=== PATIENT | male | born 1985 | race Caucasian/White ===

== ENCOUNTER 2017-01-05 10:58 | Emergency (ER) | payer OTHER ==
[~2017-01-05] VITALS: Ht 172.7 cm; Wt 86.2 kg
[~2017-01-05 10:58] MED LIST: CEPH500C PO; HYDR-1231 PO; NAPR220T29 PO
--- OUTSIDE RECORDS SUMMARY | 2017-01-05 11:03 | XMS REPORT ---
Author KIRSTY Cruz Organization [employer] Address Unknown Phone Unavailable Care Team Providers Care Photographic Colorist Name Role Phone KIRSTY SHAH CP Unavailable Allergies, Adverse Reactions, Alerts Substance Reaction Event Type Sulfamethoxazole-TMP DS hives Drug Allergy Problems Problem Type Condition Code Onset Dates Condition Status Problem Helicobacter pylori (H. pylori) infection 041.86 Active Assessment Poison jose L23.7 Active Problem Allergy, initial encounter T78.40XA Active Medications Medication Code System Code Instructions Start Date End Date Status Dosage Pred[facility]E [facility] [address]-84 20 mg Orally Once a day Dec 29, 2015Dec 2 tablets Procedures Procedure Coding System Code Date SOLUMEDROL (UP TO 125 MG) CPT-4 J2930 Dec 29, 2015 THER/PROPH/DIAG INJ, SC/IM CPT-4 85118 Dec 29, 2015 Office Visit, Est Pt., Level 3 CPT-4 17475 Dec 29, 2015 Vital Signs Date/Time: Dec 29, 2015 Cardiac Monitoring Heart Rate 72 bpm Weight 193.0 lbs Height 68 in BMI 29.34 Index Blood Pressure Diastolic 85 mmHg Blood Pressure Systolic 140 mmHg Results No Known Results Summary Purpose [employer] Submission
--- OUTSIDE RECORDS SUMMARY | 2017-01-05 11:04 | XMS REPORT ---
Author SHABBIR Cornejo [facility] [employer] Address Unknown Phone Unavailable Care Team Providers Care Rehab Office Coordinator Name Role Phone SHABBIR GREER CP Unavailable Allergies No Known Allergies Problems Problem Type Condition Code Onset Dates Condition Status Problem Helicobacter pylori (H. pylori) infection 041.86 Active Problem Allergy, initial encounter T78.40XA Active Medications No Known Medications Results No Known Results Summary Purpose [employer] Submission
--- OUTSIDE RECORDS SUMMARY | 2017-01-05 11:04 | XMS REPORT ---
Author Author ANIRUDH KENDRICK [facility] Address [address] [address] Care Team Providers Care Servicer Travel Trailers Name Role Phone ANIRUDH KENDRICK Unavailable Problems Problem SNOMED Onset Date Resolved Date Status Mental health problem 352767581 Active Review of medication 100108288 Active Allergies, Adverse Reactions No Known Allergy Care Plan Medications Medication Code Dose,Form,Route,Freq Start Date End Date Sertraline - 50 MG ORAL Tablet 159952 Take one (1) Tablet Each Morning traZODone hydrochloride - 50 MG ORAL Tablet 775449 Take one (1) Tablet At Bedtime, As Necessary traZODone hydrochloride - 50 MG ORAL Tablet 626529 Take one (1) tablet by mouth at bedtime, as needed Sertraline - 50 MG ORAL Tablet 075246 Take one (1) tablet by mouth every morning Sertraline - 25 MG ORAL Tablet 988861 Take one (1) tablet by mouth every morning traZODone hydrochloride - 50 MG ORAL Tablet 443708 Take one (1) tablet by mouth at bedtime, as needed Lab Results NA Encounters Date Time Service Code Provider 02:06:00 pm ANIRUDH KENDRICK 03:01:00 pm Family History Functional Status NA Immunizations NA Vital Signs Date Time BP Pulse Temp Height Weight BMI 11:52:00 am 114 over 70 66 bpm 70.5 in 165 lbs 23.3 kg/m^2 09:29:00 am 114 over 72 66 bpm 70.5 in 178 lbs 25.2 kg/m^2 Social History Date Smoking Status SNOMED Code Unknown If Ever Smoked 591582351 Hospital Discharge Instructions NA Instructions * Not Applicable Procedures Date Procedure Code Type Code Provider Volatile drug screen (procedure) SNOMED CT 271155344 Purpose Electronic Copy
--- NOTE | 2017-01-05 11:30 | ED Neurological Problem ---
General Chief Complaint: Neuro-Stroke Like Symptoms Stated Complaint: R SIDE ARM AND FACIAL NUMBNESS Nursing Triage Note: ARRIVED VIA AMB TO ROOM 07 WITH COMPLAINTS OF RIGHT SIDED NUMBESS IN HAND AND FACE STARTING 1 HOUR AGO THAT IS OFF AND ON. ALSO COMPLAINS OF A HEADACHE. Nursing Sepsis Screen: No Definite Risk Source: patient Exam Limitations: no limitations History of Present Illness Time seen by provider: 11:21 Initial Comments Patient presents to ER by private conveyance with a chief complaint of right facial numbness, slurred speech, arm numbness and tingling and weakness on the right side. Symptoms began about 10:30 and transiently went away within an hour. He had no stumbling, falls, difficulty drinking, facial asymmetry however he still feels a tiny bit of tingling in his fingertips on the right side. No history of trauma. He has never expressed this before. He denies personal or family history of stroke, coronary artery disease or peripheral artery disease. He does not take any medications nor does he have any significant medical history. He's had a suture repair of his left thumb for a traumatic tendon bisection years ago. He has not recently been ill or had any fevers, nausea, vomiting, rash, fatigue. No weight changes. He does not have a history of neck or back pain. Allergies and Home Medications Allergies Coded Allergies: No Known Drug Allergies (Unverified , 10/27/13) Home Medications Cephalexin Monohydrate 500 Mg Capsule, 1 EACH PO TID, #21 Prescribed by: MARCELLE CULP on 10/30/13 1237 Hydrocodone Bit/Acetaminophen 1 Tab Tablet, 1 TAB PO Q6H PRN for PAIN, #10 Prescribed by: MARCELLE CULP on 10/30/13 1237 Naproxen Sodium 220 Mg Tablet, 220 MG PO Q4H PRN for PAIN, (Reported) Constitutional: see HPI, No chills, No diaphoresis, No dizziness, No fever, No malaise, weakness Eyes: Denies Blindness, Denies Blurred Vision, Denies Drainage Ears, Nose, Mouth, Throat: denies ear pain, denies ear discharge Respiratory: No cough, No short of breath Cardiovascular: No chest pain, No Hx of Intervention, No palpitations, No syncope, No vascular heart diseas Gastrointestinal: No abdominal pain, No constipation, No diarrhea, No nausea Genitourinary: No discharge, No dysuria Musculoskeletal: No back pain, No joint pain Skin: No pruritus, No rash Psychiatric/Neurological: See HPI, Denies Cognitive Dysfunction, Denies Headache, Numbness, Tingling (right hand), Weakness, Other (no history of seizures) Past Inxmbue-Lmuhan-Hzwbdy Hx Patient Social History Alcohol Use: Occasionally Uses (last use was this weekend) Recreational Drug Use: No Smoking Status: Current Everyday Smoker Recent Foreign Travel: No Contact w/Someone Who Travel: No Recent Infectious Disease Expo: No Physical Abuse: No Sexual Abuse: No Immunizations Up To Date Tetanus Booster (TDap): Unknown Surgeries History of Surgeries: No Respiratory History of Respiratory Disorde: No Cardiovascular History of Cardiac Disorders: No Neurological History of Neurological Disord: No Reproductive System Hx Reproductive Disorders: No Genitourinary History of Genitourinary Disor: No Gastrointestinal History of Gastrointestinal Di: No Musculoskeletal History of Musculoskeletal Dis: No Endocrine History of Endocrine Disorders: No HEENT History of HEENT Disorders: No Cancer History of Cancer: No Psychosocial History of Psychiatric Problem: No Suicide Risk Score: 0 Integumentary History of Skin or Integumenta: No Physical Exam Vital Signs Vital Sign - Last 12Hours 01/05/17 11:00 Temp 98.0 Pulse 65 Resp 18 B/P (MAP) 148/89 Pulse Ox 98 Capillary Refill : Less Than 3 Seconds General Appearance: WD/WN, no apparent distress HEENT: PERRL/EOMI, normal ENT inspection, TMs normal, pharynx normal Neck: non-tender, full range of motion, supple, normal inspection Respiratory: chest non-tender, lungs clear, normal breath sounds, no respiratory distress Cardiovascular: normal peripheral pulses, regular rate, rhythm, no edema, no murmur Peripheral Pulses: 2+ Radial Pulses (R), 2+ Radial Pulses (L) Gastrointestinal: normal bowel sounds, non tender, soft Back: normal inspection, no vertebral tenderness Extremities: normal range of motion, non-tender, normal inspection, no pedal edema, no calf tenderness, normal capillary refill Neurologic/Psychiatric: 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 Motor strength 4 out of 5 right lower extremity otherwise 5 out of 5 for the other 3 extremities. Reflexes intact 2+ bilateral patellar.) Crainal Nerves: normal hearing, normal speech, PERRL Coordination/Gait: normal finger to nose, normal gait, negative Romberg's sign Motor/Sensory: no sensory deficit, no pronator drift Reflexes: 2+ Knee (R), 2+ Knee (L) Skin: normal color, warm/dry Lymphatic: no adenopathy Stroke NIH Stroke Scale Assessment Select: Initial Level of Consciousness: 0=Alert (0), Level of Consciousness- Questions: 0=Answers both month/age (0), LOC Commands: 0=Performs both tasks (0) , Visual Fox: 0=No visual loss (0), Facial Movement (Facial Paresis): 0= Normal symmetrical mnt (0), Motor Function-Arms Right: 0=No drift (0), Motor Function-Arms Left: 0=No drift (0), Motor Function-Legs Right: 0=No drift (0), Motor Function-Legs Left: 0=No drift (0), Limb Ataxia: 0=Absent (0), Sensory: 0= Normal:no loss (0), Best Language: 0=No aphasia (0), Dysarthria: 0=Normal (0), Extinction & Inattention: 0=No abnormality (0), Total: 0 Progress/Results/Core Measures Results/Orders Lab Results Laboratory Tests Test 01/05/17 11:28 01/05/17 11:56 Range/Units White Blood Count 5.8 4.3-11.0 10^3/uL Red Blood Count 5.36 4.35-5.85 10^6/uL Hemoglobin 15.5 13.3-17.7 G/DL Hematocrit 43 40-54 % Mean Corpuscular Volume 81 80-99 FL Mean Corpuscular Hemoglobin 29 25-34 PG Mean Corpuscular Hemoglobin Concent 36 32-36 G/DL Red Cell Distribution Width 12.9 10.0-14.5 % Platelet Count 209 130-400 10^3/uL Mean Platelet Volume 9.9 7.4-10.4 FL Neutrophils (%) (Auto) 60 42-75 % Lymphocytes (%) (Auto) 29 12-44 % Monocytes (%) (Auto) 7 0-12 % Eosinophils (%) (Auto) 4 0-10 % Basophils (%) (Auto) 0 0-10 % Neutrophils # (Auto) 3.5 1.8-7.8 X 10^3 Lymphocytes # (Auto) 1.7 1.0-4.0 X 10^3 Monocytes # (Auto) 0.4 0.0-1.0 X 10^3 Eosinophils # (Auto) 0.2 0.0-0.3 10^3/uL Basophils # (Auto) 0.0 0.0-0.1 10^3/uL Prothrombin Time 12.9 12.2-14.7 SEC INR Comment 1.0 0.8-1.4 Activated Partial Thromboplast Time 27 24-35 SEC D-Dimer < 0.27 0.00-0.49 UG/ML Sodium Level 138 135-145 MMOL/L Potassium Level 4.0 3.6-5.0 MMOL/L Chloride Level 107 98-107 MMOL/L Carbon Dioxide Level 19 L 21-32 MMOL/L Anion Gap 12 5-14 MMOL/L Blood Urea Nitrogen 17 7-18 MG/DL Creatinine 1.09 0.60-1.30 MG/DL Estimat Glomerular Filtration Rate > 60 BUN/Creatinine Ratio 16 Glucose Level 93 70-105 MG/DL Calcium Level 9.1 8.5-10.1 MG/DL Total Bilirubin 0.8 0.1-1.0 MG/DL Aspartate Amino Transf (AST/SGOT) 19 5-34 U/L Alanine Aminotransferase (ALT/SGPT) 23 0-55 U/L Alkaline Phosphatase 62 40-136 U/L Troponin I < 0.30 <0.30 NG/ML Total Protein 7.4 6.4-8.2 GM/DL Albumin 4.4 3.2-4.5 GM/DL Urine Color YELLOW Urine Clarity CLEAR Urine pH 6 5-9 Urine Specific Pearl 1.020 1.016-1.022 Urine Protein NEGATIVE NEGATIVE Urine Glucose (UA) NEGATIVE NEGATIVE Urine Ketones NEGATIVE NEGATIVE Urine Nitrite NEGATIVE NEGATIVE Urine Bilirubin NEGATIVE NEGATIVE Urine Urobilinogen NORMAL NORMAL MG/DL Urine Leukocyte Esterase NEGATIVE NEGATIVE Urine RBC (Auto) NEGATIVE NEGATIVE Urine RBC NONE /HPF Urine WBC NONE /HPF Urine Squamous Epithelial Cells 0-2 /HPF Urine Crystals NONE /LPF Urine Bacteria NEGATIVE /HPF Urine Casts NONE /LPF Urine Mucus NEGATIVE /LPF Urine Culture Indicated NO My Orders Orders - GEORGIA HANEY Cbc With Automated Diff (01/05/17 11:14) Protime With Inr (01/05/17 11:14) Partial Thromboplastin Time (01/05/17 11:14) Comprehensive Metabolic Panel (01/05/17 11:14) Fibrin Degradation Products (01/05/17 11:14) Troponin I (01/05/17 11:14) Ua Culture If Indicated (01/05/17 11:14) Chest 1 View, Ap/Pa Only (01/05/17 11:14) Ekg Tracing (01/05/17 11:14) Nothing By Mouth (01/05/17 Dinner) Accucheck Stat ONCE (01/05/17 11:14) Saline Lock/Iv-Start (01/05/17 11:14) Saline Lock/Iv-Start (01/05/17 11:14) Vital Signs - Stroke Q15M (01/05/17 11:14) Ct Head Wo-R/O Stroke (01/05/17 11:14) O2 (01/05/17 11:14) Intake & Output 06,14,22 (01/05/17 11:14) Monitor-Rhythm Ecg Trace Only (01/05/17 11:14) Dysphagia Screening Tool (01/05/17 11:14) Post Thrombolytic Adminstratio (01/05/17 11:14) Ns Iv 1000 Ml (Sodium Chloride 0.9%) (01/05/17 12:16) Ct Angio Head/Neck (01/05/17 12:16) Iohexol Injection (Omnipaque 350 Mg/Ml 1 (01/05/17 12:30) Sodium Chloride Flush (Catheter Flush Sy (01/05/17 12:30) Ns (Ivpb) (Sodium Chloride 0.9% Ivpb Bag (01/05/17 12:30) Medications Given in ED Current Medications Medications Dose Ordered Sig/Tessie Route Start Time Stop Time Status Last Admin Dose Admin Iohexol 80 ml ONCE ONCE IV 01/05/17 12:30 01/05/17 12:31 DC 01/05/17 12:47 80 ML Sodium Chloride 100 ml ONCE ONCE IV 01/05/17 12:30 01/05/17 12:31 DC 01/05/17 12:47 80 ML Sodium Chloride 1,000 ml @ 0 mls/hr Q0M ONCE IV 01/05/17 12:16 01/05/17 12:17 DC 01/05/17 12:30 1,000 MLS/HR Vital Signs/I&O Vital Sign - Last 12Hours 01/05/17 11:00 Temp 98.0 Pulse 65 Resp 18 B/P (MAP) 148/89 Pulse Ox 98 Blood Pressure Mean: 108 Progress Note : Time: 11:29 Progress Note All the patient does not have much significant family history he does have a history of smoking. It's unlikely this could be a stroke however he had strokelike symptoms with persistent neurologic findings at the time of examination, motor strength 4-5 right lower extremity. We'll go ahead and work him up because missing a stroke in a 31-year-old would be unwise. Unlikely a metabolic exhalation for his symptoms given they're unilateral nature. Extensive probing of his back and cervical spine did not indicate any pain or DJD exhalation for his numbness and tingling and weakness. ECG Initial ECG Impression Date: Jan 05, 2017 Initial ECG Impression Time: 11:28 Initial ECG Rate: 64 Initial ECG Rhythm: Normal Sinus Initial ECG Intervals: Normal Initial ECG Impression: Normal Initial ECG Comparisson: No Previous ECG Available Comment No ST wave elevation or depression Diagnostic Imaging Diagonstic Imaging: CT Plain Films/CT/US/NM/MRI: head Comments NAME: BRITTANY MORRIS MED REC#: [id number] PHYSICIAN: GEORGIA HANEY MD CC: MISA BECKWITH DO; GEORGIA HANEY Page 1 of 1 RADIOLOGY REPORT VIA [facility] [place], [place] CC: MISA BECKWITH DO; GEORGIA HANEY Page 1 of 1 RADIOLOGY REPORT NAME: BRITTANY MORRIS MED REC#: [id number] PT STATUS: REG ER : 1985 PHYSICIAN: GEORGIA HANEY MD ADMIT DATE: 01/05/17/ER Signed Date of Exam: 01/05/17 CT HEAD WO-R/O STROKE INDICATION: Possible stroke. Right-sided numbness. COMPARISON: None PROCEDURE: Unenhanced helical CT imaging of the brain is performed. No acute intracranial hemorrhage, mass effect or edema is seen. The posada-white junction is preserved. The ventricles appear normal. No focal abnormality is demonstrated. The paranasal sinuses and mastoids are clear as visualized. IMPRESSION: No acute intracranial abnormality is demonstrated. Dictated by: Dictated on workstation # [id number] Dict: 01/05/17 1140 Trans: 01/05/17 1154 Interpreted by: MISA BECKWITH DO Electronically signed by: MISA BECKWITH DO 01/05/17 1154 Reviewed: Reviewed by Me Diagonstic Imaging: Xray Plain Films/CT/US/NM/MRI: chest Comments NAME: BRITTANY MORRIS MED REC#: [id number] PHYSICIAN: GEORGIA HANEY MD CC: MISA BECKWITH DO; GEORGIA HANEY Page 1 of 1 RADIOLOGY REPORT VIA [place], [place] CC: MISA BECKWITH DO; GEORGIA HANEY Page 1 of 1 RADIOLOGY REPORT NAME: BRITTANY MORRIS MED REC#: [id number] PT STATUS: REG ER : 1985 PHYSICIAN: GEORGIA HANEY MD ADMIT DATE: 01/05/17/ER Signed Date of Exam: 01/05/17 CHEST 1 VIEW, AP/PA ONLY INDICATION: Right-sided numbness. COMPARISON: None. FINDINGS: Single frontal view of the chest is obtained. Heart size is normal. The pulmonary vessels appear unremarkable. There is no pneumothorax, mediastinal widening, or pleural fluid demonstrated. The lungs are clear. IMPRESSION: Negative chest. Dictated by: Dictated on workstation # [id number] Dict: 01/05/17 1141 Trans: 01/05/17 1155 Interpreted by: MISA BECKWITH DO Electronically signed by: MISA BECKWITH DO 01/05/17 1155 Reviewed: Reviewed by Me Diagonstic Imaging: CT (angio) Plain Films/CT/US/NM/MRI: head ( and neck) Comments NAME: BRITTANY MORRIS Faustino MED REC#: [id number] PT STATUS: REG ER : 1985 PHYSICIAN: GEORGIA HANEY MD ADMIT DATE: 01/05/17/ER Draft Date of Exam:01/05/17 CT ANGIO HEAD/NECK CLINICAL INDICATION: Patient with stroke like symptoms. EXAMINATIONS: 1: Head CT with IV contrast. 2: CT angiogram of the head and neck performed with 100 cc of Omnipaque 350 IV contrast. Sagittal and coronal MIP reformations were created for better visualization of vascular anatomy. COMPARISON: Head CT without contrast dated 01/05/2017. FINDINGS: Head CT: There is no evidence of acute cerebral infarct, intracranial hemorrhage, or gross mass effect. There is no abnormal IV contrast enhancement. There is normal posada-white matter distinction. The brain parenchymal volume appears appropriate for patient's age. There is no significant midline shift or herniation. There is no evidence of hydrocephalus. The basal cisterns are unremarkable. The skull, extracranial soft tissue, and orbits are unremarkable. There is mild mucosal thickening involving the ethmoid sinus and both maxillary sinuses. Temporal bone structures show no significant abnormality. CT angiogram: There is a common origin of the left common carotid artery and right brachiocephalic artery consistent with bovine arch. Two-vessel aortic arch is seen. The brachiocephalic artery, bilateral subclavian arteries, bilateral common carotid arteries, bilateral cervical ICA, bilateral ECA, and bilateral cervical vertebral arteries are patent without significant stenosis, vascular malformation, aneurysm, or dissection. There is a dominant right vertebral artery seen. Bilateral PICAs are patent. The intradural vertebral arteries, basilar artery and bilateral ICAs are patent. right CUSTOMER PROJECT MANAGER is seen. Absent right P1 CUSTOMER PROJECT MANAGER is noted. The left P1 CUSTOMER PROJECT MANAGER and its branches are patent. The anterior circulation of the [place] is patent. The ACAs and MCAs are patent. The bilateral intracranial ICAs and cavernous carotid arteries are patent. The dural venous sinuses are unremarkable as visualized. The neck soft tissue structures are unremarkable. Visualized lung apices are clear. Cervical spine is unremarkable. IMPRESSION: 1: Mild paranasal sinus disease. Otherwise unremarkable CT scan of the brain with no evidence of acute intracranial process. 2: Unremarkable CT angiogram of the [place] and neck with no evidence of significant stenosis, vascular malformation, aneurysm, or dissection. 3: Bovine aortic arch and right CUSTOMER PROJECT MANAGER. Dictated on workstation # [id number] Dict: 01/05/17 1318 Trans: 01/05/17 1330 [facility] [phone] Interpreted by: JOEL GRANDA MD Electronically signed by: Reviewed: Reviewed by Me Consults Consults : Consults Notes [facility] Neuro Dr. Wong: She recommends going ahead and getting a CTA here in if it' s negative then get the MRI in the next 1-2 days outpatient. The patient should also follow-up with his PCP for further management and workup. Departure Impression Impression: Primary Impression: Right sided weakness Additional Impressions: Numbness on right side Numbness and tingling of right side of face Disposition: HOME, SELF-CARE Condition: Improved Departure-Patient Inst. Decision time for Depature: 13:49 Referrals: NO,LOCAL PHYSICIAN (PCP/Family) Primary Care Physician Patient Instructions: Transient Ischemic Attack (DC) Add. Discharge Instructions: Plan on getting the MRI done in the next 1-2 days and then establishing and following up with a primary care physician for continued management and interpretation of your MRI results. All discharge instructions reviewed with patient and/or family. Voiced understanding. Work/School Note: Work Release Form Date Seen in the Emergency Department: Jan 05, 2017 Return to Work: Jan 06, 2017 Restrictions: No Restrictions Copy Copies To 1: SHABBIR GREER TITUS J Jan 05, 2017 11:30
[2017-01-05 11:35] LABS: BASOPHILS % (AUTO) 0 % (0-10); EOSINOPHILS # (AUTO) 0.2 10^3/uL (0.0-0.3); EOSINOPHILS % (AUTO) 4 % (0-10); LYMPHOCYTES # (AUTO) 1.7 X 10^3 (1.0-4.0); LYMPHOCYTES % (AUTO) 29 % (12-44); MEAN CORPUSCULAR HEMOGLOBIN 29 PG (25-34); MEAN CORPUSCULAR HGB CONC 36 G/DL (32-36); MEAN CORPUSCULAR VOLUME 81 FL (80-99); MEAN PLATELET VOLUME 9.9 FL (7.4-10.4); MONOCYTES # (AUTO) 0.4 X 10^3 (0.0-1.0); MONOCYTES % (AUTO) 7 % (0-12); NEUTROPHILS # (AUTO) 3.5 X 10^3 (1.8-7.8); NEUTROPHILS % (AUTO) 60 % (42-75); PLATELET COUNT 209 10^3/uL (130-400); RED BLOOD COUNT 5.36 10^6/uL (4.35-5.85); RED CELL DISTRIBUTION WIDTH 12.9 % (10.0-14.5); WHITE BLOOD COUNT 5.8 10^3/uL (4.3-11.0)
--- NOTE | 2017-01-05 11:44 | Diagnostic Imaging Report ---
INDICATION: Right-sided numbness. COMPARISON: None. FINDINGS: Single frontal view of the chest is obtained. Heart size is normal. The pulmonary vessels appear unremarkable. There is no pneumothorax, mediastinal widening, or pleural fluid demonstrated. The lungs are clear. IMPRESSION: Negative chest. Dictated by: Dictated on workstation # [id number]
--- NOTE | 2017-01-05 11:48 | Diagnostic Imaging Report ---
INDICATION: Possible stroke. Right-sided numbness. COMPARISON: None PROCEDURE: Unenhanced helical CT imaging of the brain is performed. No acute intracranial hemorrhage, mass effect or edema is seen. The posada-white junction is preserved. The ventricles appear normal. No focal abnormality is demonstrated. The paranasal sinuses and mastoids are clear as visualized. IMPRESSION: No acute intracranial abnormality is demonstrated. Dictated by: Dictated on workstation # [id number]
[2017-01-05 11:54] LABS: ALANINE AMINOTRANSFERASE 23 U/L (0-55); ALBUMIN 4.4 GM/DL (3.2-4.5); ANION GAP 12 MMOL/L (5-14); ASPARTATE AMINO TRANSFERASE 19 U/L (5-34); BILIRUBIN,TOTAL 0.8 MG/DL (0.1-1.0); BLOOD UREA NITROGEN 17 MG/DL (7-18); BUN/CREATININE RATIO 16; CALCIUM 9.1 MG/DL (8.5-10.1); CARBON DIOXIDE 19 MMOL/L (21-32); CHLORIDE 107 MMOL/L (98-107); CREATININE SERUM 1.09 MG/DL (0.60-1.30); GFR ESTIMATED > 60; GLUCOSE 93 MG/DL (70-105); SODIUM 138 MMOL/L (135-145); TOTAL PROTEIN 7.4 GM/DL (6.4-8.2)
[2017-01-05 12:02] LABS: TROPONIN I < 0.30 NG/ML (<0.30)
[2017-01-05 12:03] LABS: PARTIAL THROMBOPLASTIN TIME 27 SEC (24-35); PROTHROMBIN TIME PATIENT 12.9 SEC (12.2-14.7)
[2017-01-05 12:04] LABS: BILIRUBIN,URINE NEGATIVE (NEGATIVE); KETONES,URINE NEGATIVE (NEGATIVE); LEUKOCYTE ESTERASE ,URINE NEGATIVE (NEGATIVE); NITRITE,URINE NEGATIVE (NEGATIVE); PH,URINE 6 (5-9); PROTEIN,URINE NEGATIVE (NEGATIVE); UROBILINOGEN,URINE NORMAL (NORMAL)
[2017-01-05 12:11] LABS: SQUAMOUS EPITHELIAL CELL,UR 0-2 /HPF
[2017-01-05] MEDS ORDERED: NS IV 1000 ML 1,000 ML IV ONE (12:16)
[2017-01-05] MEDS ORDERED: NS 100 ML (IVPB) BAG IV ONE (12:30)
[2017-01-05] MEDS ORDERED: IOHEXOL 350 MG/ML 100 ML (OMNIPAQUE 350) VIAL IV ONE (12:30)
[2017-01-05] MEDS ORDERED: CATHETER FLUSH 10 ML SYR IV PRN (12:30)
--- NOTE | 2017-01-05 13:31 | Diagnostic Imaging Report ---
CLINICAL INDICATION: Patient with stroke like symptoms. EXAMINATIONS: 1: Head CT with IV contrast. 2: CT angiogram of the head and neck performed with 100 cc of Omnipaque 350 IV contrast. Sagittal and coronal MIP reformations were created for better visualization of vascular anatomy. COMPARISON: Head CT without contrast dated 01/05/2017. FINDINGS: Head CT: There is no evidence of acute cerebral infarct, intracranial hemorrhage, or gross mass effect. There is no abnormal IV contrast enhancement. There is normal posada-white matter distinction. The brain parenchymal volume appears appropriate for patient's age. There is no significant midline shift or herniation. There is no evidence of hydrocephalus. The basal cisterns are unremarkable. The skull, extracranial soft tissue, and orbits are unremarkable. There is mild mucosal thickening involving the ethmoid sinus and both maxillary sinuses. Temporal bone structures show no significant abnormality. CT angiogram: There is a common origin of the left common carotid artery and right brachiocephalic artery consistent with bovine arch. Two-vessel aortic arch is seen. The brachiocephalic artery, bilateral subclavian arteries, bilateral common carotid arteries, bilateral cervical ICA, bilateral ECA, and bilateral cervical vertebral arteries are patent without significant stenosis, vascular malformation, aneurysm, or dissection. There is a dominant right vertebral artery seen. Bilateral PICAs are patent. The intradural vertebral arteries, basilar artery and bilateral ICAs are patent. right LABORER STEEL HANDLING is seen. Absent right P1 LABORER STEEL HANDLING is noted. The left P1 LABORER STEEL HANDLING and its branches are patent. The anterior circulation of the [place] is patent. The ACAs and MCAs are patent. The bilateral intracranial ICAs and cavernous carotid arteries are patent. The dural venous sinuses are unremarkable as visualized. The neck soft tissue structures are unremarkable. Visualized lung apices are clear. Cervical spine is unremarkable. IMPRESSION: 1: Mild paranasal sinus disease. Otherwise unremarkable CT scan of the brain with no evidence of acute intracranial process. 2: Unremarkable CT angiogram of the [place] and neck with no evidence of significant stenosis, vascular malformation, aneurysm, or dissection. 3: Bovine aortic arch and right LABORER STEEL HANDLING. Dictated by: Dictated on workstation # [id number]
[2017-01-05 14:00] VITALS: BP 127/90
== END 2017-01-05 14:00 | disposition home or self-care (01) ==
LOC: EDUNIT# 10:58 → ER 11:00
DX: M62.89 Other specified disorders of muscle (principal); R20.0 Anesthesia of skin; R20.2 Paresthesia of skin
CPT/HCPCS: 36415; 70450; 70496; 70498; 71010; 80053; 81000; 82962; 84484; 85025; 85379; 85610; 85730; 93005; 96360

== ENCOUNTER → 2017-01-14 | Outpatient (CLI) | payer OTHER ==
[~2017-01-14] MED LIST changes: +GADOBUTROL 10 MMOL/10 ML (GADAVIST) VIAL IV ONE
--- NOTE | 2017-01-14 12:54 | Diagnostic Imaging Report ---
PROCEDURE: MR imaging of the brain with and without contrast. TECHNIQUE: Multiplanar, multisequence MR imaging of the brain was performed with and without contrast. Right hand and right facial numbness. 9 mL of Gadavist was administered intravenously. FINDINGS: There is no diffusion restriction to suggest an acute infarct or other diffusion abnormality. There is a nonspecific 1.2 cm elongated focus of increased signal on T2 and low signal on T1-weighted images seen in the white matter deep to the left insular cortex along the area of the claustrum and extreme capsule. No other focus of signal abnormality, demyelination or mass is seen in the white or posada matter. No enhancing lesion. The brainstem and the cerebellum appear unremarkable. The central vascular flow-voids appear grossly unremarkable. The internal auditory canals and inner ear structures appear symmetric. The pituitary gland is normal in size. No hypothalamic or pineal region mass is seen. The paranasal sinuses, and orbits visualized portions appear unremarkable. IMPRESSION: There is a single focus of increased signal seen deep to the left insular cortex with no obvious mass effect or enhancement. Etiology and chronicity are indeterminate. This could be related to a focus of gliosis from a prior insult or sequela of focal encephalitis or demyelinating process. The lack of enhancement or diffusion restriction may favor chronicity. Correlate clinically and with followup exam, if needed. Dictated by: Dictated on workstation # [id number]
== END ==
LOC: RAD 10:55
PROVIDERS: ATTEND Nurse Practitioner Family
DX: G45.9 Transient cerebral ischemic attack, unspecified (principal)
CPT/HCPCS: 70553

== ENCOUNTER → 2017-07-21 | Outpatient (CLI) | payer OTHER ==
[~2017-07-21] MED LIST changes: +BARIUM SUSPENSION 105% (LIQUID POLIBAR PLUS) 240 ML/DOSE PO ONE; +BARIUM SUSPENSION 60% (LIQUID EZ PAQUE) 240 ML DOSE PO ONE; -GADOBUTROL 10 MMOL/10 ML (GADAVIST) VIAL IV ONE
--- NOTE | 2017-07-21 11:48 | Diagnostic Imaging Report ---
INDICATION: Mid chest pain while drinking liquids and eating solids for the past three weeks. TECHNIQUE: The patient ingested effervescent crystals as well as thin and thick barium and imaging of the esophagus was performed. FINDINGS: The preliminary radiograph of the chest is unremarkable. The esophagus has a smooth contour. No mass or strictures identified. No gastroesophageal reflux or hiatal hernia was demonstrated. IMPRESSION: Unremarkable esophagram. Dictated by: Dictated on workstation # [id number]
== END ==
LOC: RAD 09:20
PROVIDERS: ATTEND Nurse Practitioner Family
DX: F45.8 Other somatoform disorders (principal)
CPT/HCPCS: 74220

== ENCOUNTER 2021-02-01 11:15 | Emergency (ER) | payer SELFPAY ==
[~2021-02-01] VITALS: Ht 172.7 cm; Wt 68.0 kg
[~2021-02-01 11:15] MED LIST changes: -BARIUM SUSPENSION 105% (LIQUID POLIBAR PLUS) 240 ML/DOSE PO ONE; -BARIUM SUSPENSION 60% (LIQUID EZ PAQUE) 240 ML DOSE PO ONE
--- OUTSIDE RECORDS SUMMARY | 2021-02-01 11:21 | XMS REPORT | Clinical Summary ---
Demographics Preferred Language Unknown Marital Status Single Evangelical Affiliation Unknown Race Unknown Ethnic Group Unknown Author Author [facility] Organization [facility] Address Unknown Phone Unavailable Care Team Providers Care Design Studio Consultant Name Role Phone PCP Unavailable Allergies Not on File Medications Not on file Active Problems Not on file Social History Date Tobacco Use Types Packs/Day Years Used Never Assessed Sex Assigned at Date Recorded Not on file Last Filed Vital Signs Not on file Plan of Treatment Not on file Results Not on filefrom Last 3 Months
--- OUTSIDE RECORDS SUMMARY | 2021-02-01 11:21 | XMS REPORT | Clinical Summary ---
Author Author [facility] Organization [facility] Address Unknown Phone Unavailable Care Team Providers Care Ent Consultant Name Role Phone Deon Ricardo MD PCP Deon Ricardo MD 100 Source Comments Some departments are not documenting in the electronic medical record. If you d o not see the information that you expected, contact Release of Information in [facility] Information Management department at [phone] for further assistan ce in locating additional records.[facility] Allergies No Known Active Allergies Medications End Date Status Medication Sig Dispensed Refills Start Date Active loratadine/pseudoephedrin Take 1 tablet 0 e (CLARITIN-D 12 HOUR) by mouth 5/120 mg tablet twice daily. Active IBUPROFEN PO Take 200 mg 0 by mouth as Needed. Active ARIPiprazole (ABILIFY) 5 Take 5 mg by 0 mg tablet mouth daily. Active Problems Problem Noted Date Pancreatic lesion 06/14/2017 Overview: Formatting of this note might be differ ent from the original. 06/2017: seen incidentally on CT, will n eed repeat CT scan in 6 months Immunizations Name Administration Dates Next Due Td Vaccine 09/07/2006, 09/05/2002 Tdap Vaccine 08/11/2017 Surgical History Surgery Date Site/Laterality Comments HX APPENDECTOMY HX BROKEN BONES/ Right plate placed in low er leg FRACTURES Medical History Medical History Date Comments Vision decreased Depression Family History Medical History Relation Name Comments Cancer Father non hodgkins lympho ma Cancer-Breast Maternal Aunt Cancer-Ovarian Maternal Aunt Depression Mother Thyroid Disease Mother Dementia Paternal Grandfather Relation Name Status Comments Father Alive Maternal Aunt Mother Alive Paternal Grandfather Alive Sister Alive Sister Alive Social History Date Tobacco Use Types Packs/Day Years Used Former Smoker 0.25 Smokeless Tobacco: Never Used Comments: Vape Comments Alcohol Use Standard Drinks/Week No 0 (1 standard drink = 0.6 o z pure alcohol) Sex Assigned at Date Recorded Not on file Last Filed Vital Signs Reading Time Taken Comments Vital Sign 99/66 08/11/2017 1:24 PM CDT Blood Pressure 60 08/11/2017 1:24 PM CDT Pulse 36.8 C (98.2 F) 08/11/2017 1:24 PM CDT Temperature 16 08/11/2017 1:24 PM CDT Respiratory Rate - - Oxygen Saturation - - Inhaled Oxygen Concentration 72.6 kg (160 lb) 01/09/2020 8:19 AM CDT Weight 177.8 cm (5' 10") 01/09/2020 8:19 AM CDT Height 22.96 01/09/2020 8:19 AM CDT Body Mass Index Plan of Treatment Health Maintenance Due Date Last Done Comments HEPATITIS C SCREENING 07/21/2005 PHYSICAL (COMPREHENSIVE) 08/11/2018 08/11/2017 EXAM INFLUENZA VACCINE 11/30/2020 DTAP/TDAP VACCINES (3 - 08/12/2027 08/11/2017, Td or Tdap) 09/07/2006, 09/05/2002 HIV SCREENING Completed 08/11/2017 Results Not on filefrom Last 3 Months Insurance Type Payer Benefit Subscriber ID Effective Phone Address Plan / Dates Group OUMARLELEArie OSEGUERANILSON [id number]-P NEERU us 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
--- NOTE | 2021-02-01 11:37 | ED Integumentary General ---
General Chief Complaint: Skin/Wound Problems Stated Complaint: SORES ON BOTH FEET/R HAND/R ELBOW Nursing Triage Note: 3 days caridad noticed sores on right hand right elbow and right toe now on left hand. developed fever that evening est. at 101. tylenol and ibuprofen for 3 days not getting any better. never had anything like this happen before. Source: patient Exam Limitations: no limitations History of Present Illness Date Seen by Provider: Feb 01, 2021 Time Seen by Provider: 11:35 Initial Comments To ER with a 3-day history of 2 sores on the right hand over the third and fourth knuckle. 1 to the posterior right elbow. Today he developed some between his toes on both feet. He had a fever up to 101 which just started today. No cough. No intraoral lesions. No other symptoms such as rhinorrhea but he does have some general fatigue and malaise. Timing/Duration: constant Severity: moderate Location: none Possible Cause: no cause identified Associated Symptoms: fever Allergies and Home Medications Allergies Coded Allergies: No Known Drug Allergies (Unverified , 10/27/13) Patient Home Medication List Home Medication List Reviewed: Yes Cephalexin Monohydrate (Cephalexin) 500 Mg Capsule, 1 EACH PO TID Prescribed by: MARCELLE CULP on 10/30/13 1237 Doxycycline Hyclate (Doxycycline Hyclate) 100 Mg Tablet, 100 MG PO BID Prescribed by: MARCELLE CULP on 02/01/21 1218 Hydrocodone Bit/Acetaminophen (Hydrocodone-Apap 5-325 Tablet) 1 Tab Tablet, 1 TAB PO Q6H PRN for PAIN Prescribed by: MARCELLE CULP on 10/30/13 1237 Naproxen Sodium (Naproxen) 220 Mg Tablet, 220 MG PO Q4H PRN for PAIN, (Reported) Entered as Reported by: KARL GARCIA on 10/30/13 1235 Review of Systems Review of Systems Constitutional: see HPI, fever, malaise EENTM: see HPI Respiratory: no symptoms reported Cardiovascular: no symptoms reported Genitourinary: no symptoms reported Musculoskeletal: no symptoms reported Skin: see HPI Psychiatric/Neurological: No Symptoms Reported Endocrine: No Symptoms Reported Past Ycfjzxz-Nbjsvz-Uxkyfz Hx Immunizations Up To Date Tetanus Booster (TDap): Unknown Past Medical History Surgeries: No Respiratory: No Cardiac: No Neurological: No Reproductive Disorders: No Genitourinary: No Gastrointestinal: No Musculoskeletal: No Endocrine: No HEENT: No Cancer: No Psychosocial: No Integumentary: No Physical Exam Vital Signs Vital Signs - First Documented 02/01/21 11:24 Temp 36.6 Pulse 92 Resp 18 B/P (MAP) 108/66 (80) Pulse Ox 100 Capillary Refill : Less Than 3 Seconds General Appearance: WD/WN, no apparent distress HEENT: PERRL/EOMI, normal ENT inspection Neck: non-tender, full range of motion Respiratory: no respiratory distress, no accessory muscle use Neurologic/Psychiatric: alert, normal mood/affect, oriented x 3 Skin: normal color, warm/dry Skin Problem Location: other (There are unruptured pustules on an erythematous base without secondary cellulitis to the interdigital skin between the toes on both feet. Nothing on the dorsal or plantar surface of the toes. Nothing on the palms of the hands but he does have some ruptured pustules over the third and fourth knuckles as well as a pustule to the right elbow. Nothing on the torso forearms or upper arms. Nothing on the face and no intraoral lesions.) Skin Problem Character: other (pustules) Progress/Results/Core Measures Results/Orders Lab Results Laboratory Tests Test 02/01/21 11:40 Range/Units White Blood Count 7.9 4.3-11.0 10^3/uL Red Blood Count 4.94 4.30-5.52 10^6/uL Hemoglobin 14.0 13.3-17.7 g/dL Hematocrit 42 40-54 % Mean Corpuscular Volume 85 80-99 fL Mean Corpuscular Hemoglobin 28 25-34 pg Mean Corpuscular Hemoglobin Concent 33 32-36 g/dL Red Cell Distribution Width 13.0 10.0-14.5 % Platelet Count 157 130-400 10^3/uL Mean Platelet Volume 10.1 9.0-12.2 fL Immature Granulocyte % (Auto) 0 % Neutrophils (%) (Auto) 78 H 42-75 % Lymphocytes (%) (Auto) 14 12-44 % Monocytes (%) (Auto) 5 0-12 % Eosinophils (%) (Auto) 2 0-10 % Basophils (%) (Auto) 0 0-10 % Neutrophils # (Auto) 6.2 1.8-7.8 10^3/uL Lymphocytes # (Auto) 1.1 1.0-4.0 10^3/uL Monocytes # (Auto) 0.4 0.0-1.0 10^3/uL Eosinophils # (Auto) 0.2 0.0-0.3 10^3/uL Basophils # (Auto) 0.0 0.0-0.1 10^3/uL Immature Granulocyte # (Auto) 0.0 0.0-0.1 10^3/uL Sodium Level 141 135-145 MMOL/L Potassium Level 3.9 3.6-5.0 MMOL/L Chloride Level 105 98-107 MMOL/L Carbon Dioxide Level 24 21-32 MMOL/L Anion Gap 12 5-14 MMOL/L Blood Urea Nitrogen 9 7-18 MG/DL Creatinine 0.93 0.60-1.30 MG/DL Estimat Glomerular Filtration Rate 94 BUN/Creatinine Ratio 10 Glucose Level 87 70-105 MG/DL Calcium Level 9.3 8.5-10.1 MG/DL Corrected Calcium 9.5 8.5-10.1 MG/DL Total Bilirubin 0.5 0.1-1.0 MG/DL Aspartate Amino Transf (AST/SGOT) 24 5-34 U/L Alanine Aminotransferase (ALT/SGPT) 32 0-55 U/L Alkaline Phosphatase 68 40-136 U/L C-Reactive Protein High Sensitivity 7.07 H 0.00-0.50 MG/DL Total Protein 6.3 L 6.4-8.2 GM/DL Albumin 3.8 3.2-4.5 GM/DL My Orders Orders - MARCELLE CULP APRN Hs C Reactive Protein (02/01/21 11:33) Cbc With Automated Diff (02/01/21 11:33) Comprehensive Metabolic Panel (02/01/21 11:33) Wound Culture (02/01/21 11:33) Doxycycline Hyclate Tablet (Vibramycin T (02/01/21 11:45) Hydrocodone/Apap 5/325 Tablet (Lortab 5 (02/01/21 11:45) Medications Given in ED Current Medications Medications Dose Ordered Sig/Tessie Route Start Time Stop Time Status Last Admin Dose Admin Acetaminophen/ Hydrocodone Bitart 1 ea ONCE ONCE PO 02/01/21 11:45 02/01/21 11:46 DC 02/01/21 12:05 1 EA Vital Signs/I&O 02/01/21 11:24 Temp 36.6 Pulse 92 Resp 18 B/P (MAP) 108/66 (80) Pulse Ox 100 Blood Pressure Mean: 80 Departure Impression Primary Impression: Cellulitis of right elbow Additional Impression: Viral exanthem, unspecified Disposition: HOME, SELF-CARE Condition: Stable Departure-Patient Inst. Decision time for Depature: 12:16 Referrals: SHABBIR GREER DO (PCP) Primary Care Physician LISSA HERRERA APRN (Family) Primary Care Physician Patient Instructions: Viral Exanthem, Cellulitis (Skin Infection), Adult ED Add. Discharge Instructions: 1. The cause of your fatigue and skin lesions is not entirely clear though it may be related to a hand-foot and mouth disease which is more common to children but can be seen in adults to with body aches fever and a skin rash to the hands and feet. I would not be surprised if you develop sore throat in the next few days. Most of the time symptoms completely resolved within 7 to 10 days. I do think that you have a bacterial infection to the right elbow because there is puslike drainage with surrounding redness. For that reason I am going to give you an antibiotic called doxycycline to be taken twice a day. Use Tylenol and ibuprofen for pain or fever control. Drink plenty of fluids and rest. Follow- up with your doctor next week for recheck. All discharge instructions reviewed with patient and/or family. Voiced understanding. Scripts Doxycycline Hyclate (Doxycycline Hyclate) 100 Mg Tablet 100 MG PO BID, #14 TAB 0 Refills Prov: MARCELLE CULP APRN 02/01/21 Work/School Note: Work Release Form Date Seen in the Emergency Department: Feb 01, 2021 Return to Work: Feb 04, 2021 MARCELLE CULP APRN Feb 01, 2021 11:37
[2021-02-01] MEDS ORDERED: DOXYCYCLINE 100 MG (VIBRAMYCIN) TABLET PO SCH (11:45)
[2021-02-01] MEDS ORDERED: HYDROcodone/APAP 5 MG/325 MG (LORTAB) TAB PO ONE (11:45)
[2021-02-01 11:50] LABS: BASOPHILS % (AUTO) 0 % (0-10); EOSINOPHILS # (AUTO) 0.2 10^3/uL (0.0-0.3); EOSINOPHILS % (AUTO) 2 % (0-10); HEMATOCRIT 42 % (40-54); LYMPHOCYTES # (AUTO) 1.1 10^3/uL (1.0-4.0); LYMPHOCYTES % (AUTO) 14 % (12-44); MEAN CORPUSCULAR HEMOGLOBIN 28 pg (25-34); MEAN CORPUSCULAR HGB CONC 33 g/dL (32-36); MEAN CORPUSCULAR VOLUME 85 fL (80-99); MEAN PLATELET VOLUME 10.1 fL (9.0-12.2); MONOCYTES # (AUTO) 0.4 10^3/uL (0.0-1.0); MONOCYTES % (AUTO) 5 % (0-12); NEUTROPHILS # (AUTO) 6.2 10^3/uL (1.8-7.8); NEUTROPHILS % (AUTO) 78 % (42-75); PLATELET COUNT 157 10^3/uL (130-400); WHITE BLOOD COUNT 7.9 10^3/uL (4.3-11.0)
[2021-02-01 12:01] LABS: ALBUMIN 3.8 GM/DL (3.2-4.5); POTASSIUM 3.9 MMOL/L (3.6-5.0)
[2021-02-01 12:02] LABS: CALCIUM 9.3 MG/DL (8.5-10.1)
[2021-02-01 12:04] LABS: TOTAL PROTEIN 6.3 GM/DL (6.4-8.2)
[2021-02-01 12:05] LABS: BILIRUBIN,TOTAL 0.5 MG/DL (0.1-1.0)
[2021-02-01 12:07] LABS: CREATININE SERUM 0.93 MG/DL (0.60-1.30)
[2021-02-01] MEDS ORDERED: DOXY100T2 PO (12:18)
[2021-02-01 12:43] VITALS: BP 108/66
== END 2021-02-01 12:40 | disposition home or self-care (01) ==
LOC: EDUNIT# 11:15 → ER 11:19
DX: L03.113 Cellulitis of right upper limb (principal); B09 Unspecified viral infection characterized by skin and mucous membrane lesions
CPT/HCPCS: 36415; 80053; 85025; 86141; 87070; 87077; 87186; 87205; 99283

== ENCOUNTER 2021-04-07 09:09 | Emergency (ER) | payer SELFPAY ==
[~2021-04-07] VITALS: Ht 175 cm; Wt 70.0 kg
[~2021-04-07 09:09] MED LIST changes: +DOXY100T2 PO
--- NOTE | 2021-04-07 10:40 | ED General ---
General Chief Complaint: General Problems/Pain Stated Complaint: L THUMB INFECTION Nursing Triage Note: AMB TO ROOM WITH SWELLING TO R THUMB X 7 DAYS WAS SEEN 4 DAYS AGO AT [facility] AND STARTED ON AMOXIL NOT ANY BETTER SWELLING IN THUMB WORSE Source of Information: Patient Exam Limitations: No Limitations (MARCELLE CULP APRN) History of Present Illness Date Seen by Provider: Apr 07, 2021 Time Seen by Provider: 10:39 Initial Comments To ER with left thumb infection for 7 days. Was seen at [facility] 4 days ago and given amoxicillin but denies any improvement. In fact the swelling has gotten more pronounced. Timing/Duration: 1 Week Severity: Moderate Associated Systoms: Denies Symptoms (MARCELLE CULP APRN) Allergies and Home Medications Allergies Coded Allergies: No Known Drug Allergies (Unverified , 10/27/13) Patient Home Medication List Home Medication List Reviewed: Yes (MARCELLE CULP APRN) Cephalexin Monohydrate (Cephalexin) 500 Mg Capsule, 1 EACH PO TID Prescribed by: MARCELLE CULP on 10/30/13 1237 Doxycycline Hyclate (Doxycycline Hyclate) 100 Mg Tablet, 100 MG PO BID Prescribed by: MARCELLE CULP on 02/01/21 1218 Doxycycline Hyclate (Doxycycline Hyclate) 100 Mg Tablet, 100 MG PO BID Prescribed by: MARCELLE CULP on 04/07/211942 Last Action: New Order Hydrocodone Bit/Acetaminophen (Hydrocodone-Apap 5-325 Tablet) 1 Tab Tablet, 1 TAB PO Q6H PRN for PAIN Prescribed by: MARCELLE CULP on 10/30/13 1237 Hydrocodone/Acetaminophen (Hydrocodone-Acetamin 5-325 mg) 1 Each Tablet, 1 TAB PO Q4H PRN for PAIN-MODERATE (5-7) Prescribed by: MARCELLE CUPL on 04/07/211942 Last Action: New Order Naproxen Sodium (Naproxen) 220 Mg Tablet, 220 MG PO Q4H PRN for PAIN, (Reported) Entered as Reported by: KARL GARCIA on 10/30/13 1235 Discontinued Medications Doxycycline Hyclate (Doxycycline Hyclate) 100 Mg Tablet, 100 MG PO BID Discontinued Reason: Prescription changed Prescribed by: MARCELLE CULP on 04/07/21 1126 Hydrocodone/Acetaminophen (Hydrocodone-Acetamin 5-325 mg) 1 Each Tablet, 1 TAB PO Q4H PRN for PAIN-MODERATE (5-7) Discontinued Reason: Prescription changed Prescribed by: MARCELLE CULP on 04/07/21 1127 Review of Systems Review of Systems Constitutional: see HPI EENTM: see HPI Respiratory: no symptoms reported Cardiovascular: no symptoms reported Genitourinary: no symptoms reported Musculoskeletal: no symptoms reported Skin: see HPI Psychiatric/Neurological: No Symptoms Reported Hematologic/Lymphatic: No Symptoms Reported Immunological/Allergic: no symptoms reported (MARCELLE CULP APRN) Past Eiridfr-Poiumx-Dvxusa Hx Patient Social History Tobacco Use?: No Substance use?: No Alcohol Use?: No (MARCELLE CULP APRN) Immunizations Up To Date Tetanus Booster (TDap): Unknown (MARCELLE CULP APRN) Past Medical History Surgeries: No Respiratory: No Cardiac: No Neurological: No Reproductive Disorders: No Genitourinary: No Gastrointestinal: No Musculoskeletal: No Endocrine: No HEENT: No Cancer: No Psychosocial: No Integumentary: No (MARCELLE CULP APRN) Physical Exam Vital Signs Vital Signs - First Documented 04/07/21 09:14 Temp 36.2 Pulse 114 Resp 18 B/P (MAP) 167/97 (120) Pulse Ox 100 O2 Delivery Room Air (JANY MUÑIZ MD) Vital Signs Capillary Refill : Less Than 3 Seconds (MARCELLE CULP APRN) Height, Weight, BMI Height: 5'8.00" Weight: 190lbs. oz. 86.879230et; 22.00 BMI Method:Stated General Appearance: No Apparent Distress, WD/WN Eyes: Bilateral Eye Normal Inspection, Bilateral Eye PERRL, Bilateral Eye EOMI Neck: Full Range of Motion, Normal Inspection Respiratory: No Accessory Muscle Use, No Respiratory Distress Cardiovascular: Regular Rate, Rhythm, Normal Peripheral Pulses Gastrointestinal: Non Tender, Soft Extremity: Normal Capillary Refill, Normal Inspection, Other (There is a 2 x 2 centimeter felon to the pad of the left thumb) Neurologic/Psychiatric: Alert, Oriented x3 Skin: Normal Color (MARCELLE CULP APRN) Progress/Results/Core Measures Suspected Sepsis SIRS Temperature: Pulse: 114 Respiratory Rate: 18 Blood Pressure 167 /97 Mean: 120 (MARCELLE CULP APRN) Results/Orders Medications Given in ED Current Medications Medications Dose Ordered Sig/Tessie Route Start Time Stop Time Status Last Admin Dose Admin Acetaminophen/ Hydrocodone Bitart 1 ea ONCE ONCE PO 04/07/21 10:45 04/07/21 10:46 DC 04/07/21 10:45 1 EA Lidocaine HCl 20 ml ONCE ONCE INJ 04/07/21 10:45 04/07/21 10:46 DC 04/07/21 10:50 20 ML (JANY MUÑIZ MD) Vital Signs/I&O 04/07/21 04/07/21 09:14 11:36 Temp 36.2 36.2 Pulse 114 114 Resp 18 18 B/P (MAP) 167/97 (120) 167/97 Pulse Ox 100 100 O2 Delivery Room Air Room Air (JANY MUÑIZ MD) Vital Signs/I&O Capillary Refill : Less Than 3 Seconds (MARCELLE CULP APRN) Blood Pressure Mean: 120 Departure Impression Primary Impression: Felon of finger of left hand Disposition: 01 HOME, SELF-CARE Condition: Improved Departure-Patient Inst. Decision time for Depature: 11:25 (MARCELLE CULP APRN) Referrals: NO,LOCAL PHYSICIAN (PCP) Primary Care Physician Patient Instructions: NO INSTRUCTIONS GIVEN Add. Discharge Instructions: 1. You can continue to soak this in warm water couple times a day. Take the new antibiotic called doxycycline as directed. Take the hydrocodone for pain as directed. Return to ER for any Worsening. This will take about a week to improve. All discharge instructions reviewed with patient and/or family. Voiced understanding. Scripts Hydrocodone/Acetaminophen (Hydrocodone-Acetamin 5-325 mg) 1 Each Tablet 1 TAB PO Q4H PRN for PAIN-MODERATE (5-7), #10 TAB .. Prov: MARCELLE CULP APRN 04/07/21 Doxycycline Hyclate (Doxycycline Hyclate) 100 Mg Tablet 100 MG PO BID, #14 TAB 0 Refills .. Prov: MARCELLE CULP APRN 04/07/21 ATTENDING PHYSICIAN NOTE: I was physically present as attending physician in the emergency department during the care of this patient, but I was not directly involved in the decision making or delivery of care for this patient. (JANY MUÑIZ MD) MARCELLE CULP APRN Apr 07, 2021 10:40 JANY MUÑIZ MD Apr 07, 2021 20:16
[2021-04-07] MEDS ORDERED: LIDOCAINE 1% INJ 20 ML 20 ML VIAL INJ ONE (10:45)
[2021-04-07] MEDS ORDERED: DOXYCYCLINE 100 MG (VIBRAMYCIN) TABLET PO SCH (10:45)
[2021-04-07] MEDS ORDERED: HYDROcodone/APAP 5 MG/325 MG (LORTAB) TAB PO ONE (10:45)
[2021-04-07] MEDS ORDERED: DOXY100T2 PO ×3 (11:26→19:43)
[2021-04-07] MEDS ORDERED: ACHD5005 PO ×3 (11:26→19:43)
[2021-04-07 11:36] VITALS: BP 167/97
== END 2021-04-07 11:35 | disposition home or self-care (01) ==
LOC: EDUNIT# 09:09 → ER 09:11
DX: L03.012 Cellulitis of left finger (principal)
CPT/HCPCS: 10060; 87070; 87077; 87186; 87205

== ENCOUNTER 2022-06-17 09:54 | Emergency (ER) | payer SELFPAY ==
[~2022-06-17] VITALS: Ht 172 cm; Wt 73.0 kg
[~2022-06-17 09:54] MED LIST changes: +ACHD5005 PO
[2022-06-17] MEDS ORDERED: NAPR500T8 PO (10:22)
[2022-06-17] MEDS ORDERED: CYCL10TA25 PO (10:22)
--- NOTE | 2022-06-17 10:22 | ED Back Pain ---
General Chief Complaint: Back Problems Stated Complaint: MUSCLE SPASMS IN BACK AND RT SHOULDER Nursing Triage Note: PT STATES MUSCLE SPASMS IN RT SHOULDER AND UPPER BACK, HAS HAPPENED BEFORE ABOUT EVERY 3-6 MONTHS, Allergies and Home Medications Allergies Coded Allergies: No Known Drug Allergies (Unverified , 10/27/13) Patient Home Medication List Cephalexin Monohydrate (Cephalexin) 500 Mg Capsule, 1 EACH PO TID Prescribed by: MARCELLE CULP on 10/30/13 123 Doxycycline Hyclate (Doxycycline Hyclate) 100 Mg Tablet, 100 MG PO BID Prescribed by: MARCELLE CULP on 02/01/21 1218 Doxycycline Hyclate (Doxycycline Hyclate) 100 Mg Tablet, 100 MG PO BID Prescribed by: MARCELLE CULP on 04/07/21 194 Hydrocodone Bit/Acetaminophen (Hydrocodone-Apap 5-325 Tablet) 1 Tab Tablet, 1 TAB PO Q6H PRN for PAIN Prescribed by: MARCELLE CULP on 10/30/13 123 Hydrocodone/Acetaminophen (Hydrocodone-Acetamin 5-325 mg) 1 Each Tablet, 1 TAB PO Q4H PRN for PAIN-MODERATE (5-7) Prescribed by: MARCELLE CULP on 04/07/211942 Naproxen Sodium (Naproxen) 220 Mg Tablet, 220 MG PO Q4H PRN for PAIN, (Reported) Entered as Reported by: KARL GARCIA on 10/30/13 1235 Past Yadfzpq-Ihmuhx-Cnvqub Hx Patient Social History Tobacco Use?: No Substance use?: No Alcohol Use?: No Immunizations Up To Date Tetanus Booster (TDap): Unknown Past Medical History Surgery/Hospitalization HX: DIABETIC TYPE I Surgeries: No Respiratory: No Cardiac: No Neurological: No Reproductive Disorders: No Genitourinary: No Gastrointestinal: No Musculoskeletal: No Endocrine: No HEENT: No Cancer: No Psychosocial: No Integumentary: No Physical Exam Vital Signs Vital Signs - First Documented 06/17/22 09:59 Temp 35.9 Pulse 85 Resp 18 B/P (MAP) 120/82 (95) Pulse Ox 98 O2 Delivery Room Air Capillary Refill : Less Than 3 Seconds Height, Weight, BMI Height: 5'8.00" Weight: 190lbs. oz. 86.788816ah; 24.00 BMI Method:Stated Progress/Results/Core Measures Results/Orders Vital Signs/I&O 06/17/22 09:59 Temp 35.9 Pulse 85 Resp 18 B/P (MAP) 120/82 (95) Pulse Ox 98 O2 Delivery Room Air Blood Pressure Mean: 95 Departure Impression Primary Impression: Chronic back pain Disposition: 01 HOME, SELF-CARE Condition: Stable Departure-Patient Inst. Decision time for Depature: 10:20 Referrals: SHABBIR GREER DO [facility] Patient Instructions: Upper Back Pain (DC), MANAGING YOUR CHRONIC PAIN Add. Discharge Instructions: MOIST HEAT TO AREA AT 20 MINUTE INTERVALS FOLLOW UP WITH PSYCHIATRIC-[facility] NEXT WEEK FOR FURTHER CARE--CALL TODAY TO SCHEDULE AN APPOINTMENT All discharge instructions reviewed with patient and/or family. Voiced understanding. Scripts Naproxen (Naproxen) 500 Mg Tablet.dr 500 MG PO BID, #20 TAB Prov: KOBE HERNANDEZ DO 06/17/22 Cyclobenzaprine HCl (Cyclobenzaprine HCl) 10 Mg Tablet 10 MG PO Q8H PRN for SPASMS, #15 TAB 0 Refills Prov: KOBE HERNANDEZ DO 06/17/22 KOBE HERNANDEZ DO Jun 17, 2022 10:22
[2022-06-17 10:29] VITALS: BP 120/82
== END 2022-06-17 10:29 | disposition home or self-care (01) ==
LOC: EDUNIT# 09:54 → ER 09:57
DX: M54.6 Pain in thoracic spine (principal); Z28.310 Unvaccinated for COVID-19
CPT/HCPCS: 99281